=== PATIENT | female | born 1945 | race Hispanic/Latino ===

== ENCOUNTER 2022-06-25 11:05 | Emergency (ER) | payer MEDICARE, OTHER ==
[~2022-06-25] VITALS: Ht 152.4 cm; Wt 74.8 kg
[2022-06-25 11:50] LABS: BASOPHILS % (AUTO) 0.2 % (0.0-5.0); EOSINOPHILS % (AUTO) 0.9 % (0.0-8.0); HEMATOCRIT 40.4 % (36-48); LYMPHOCYTES % (AUTO) 18.2 % (21.0-51.0); MEAN CORPUSCULAR HEMOGLOBIN 30.4 pg (27.0-33.0); MEAN CORPUSCULAR HGB CONC 33.4 g/dL (32.0-36.0); MONOCYTES % (AUTO) 9.2 % (3.0-13.0); NEUTROPHILS % (AUTO) 71.2 % (40.0-77.0); PLATELET COUNT (AUTO) 232 K/uL (130-400); RED BLOOD CELL COUNT(AUTO) 4.44 MIL/uL (4.00-5.50); RED CELL DISTRIBUTION WIDTH 12.9 % (11.0-15.5); WHITE BLOOD COUNT (AUTO) 5.8 K/uL (4.8-10.8)
[2022-06-25 12:01] LABS: INR 0.93 (0.85-1.15); PROTHROMBIN TIME 10.1 SEC (9.6-11.6)
[2022-06-25 12:03] LABS: CREATININE 0.8 mg/dL (0.5-1.5); POTASSIUM 4.1 mmol/L (3.5-5.1)
[2022-06-25 12:08] LABS: ALBUMIN 4.1 g/dL (3.5-5.0); TOTAL PROTEIN, SERUM 8.4 g/dL (6.0-8.3)
[2022-06-25] MEDS ORDERED: ACET-66 PO (13:55)
[2022-06-25 14:30] VITALS: BP 140/72
== END 2022-06-25 14:39 | disposition home or self-care (01) ==
LOC: EDH 11:05
DX: S05.12XA Contusion of eyeball and orbital tissues, left eye, initial encounter (principal); S05.11XA Contusion of eyeball and orbital tissues, right eye, initial encounter; W18.30XA Fall on same level, unspecified, initial encounter; Y93.89 Activity, other specified; Y92.89 Other specified places as the place of occurrence of the external cause; Y99.8 Other external cause status
CPT/HCPCS: 36415; 70450; 70486; 72125; 80053; 85025; 85610; 93005

== ENCOUNTER 2024-05-18 06:58 | Observation (INO) | payer OTHER, MEDICARE ==
[~2024-05-18] VITALS: Ht 162.6 cm; Wt 65.5 kg
[~2024-05-18 06:58] MED LIST: ACET-66 PO
--- NOTE | 2024-05-18 07:30 | EKG ---
[facility] Test Date: 2024-05-18 Test Time: 07:04:47 Pat Name: LISBETH CROW Department: ED Room: 306 Gender: F Proposition Player: [id number] : 1945 Requested By: JOSÉ ANTONIO WALLS Order Number: [id number] Reading MD: González Davey Measurements Intervals [place] Rate: 81 P: 0 WV: 137 QRS: 29 QRSD: 87 T: 24 QT: 388 QTc: 440 Interpretive Statements Sinus rhythm Multiple ventricular premature complexes Compared to ECG 06/25/2022 11:29:17 Ventricular premature complex(es) now present Electronically Signed On 05-19-2024 20:01:03 [employer] by González Davey Please click the below link to view image of tracing.
[2024-05-18 08:37] LABS: BASOPHILS # (AUTO) 0.02 K/uL (0.00-0.20); BASOPHILS % (AUTO) 0.2 % (0.0-5.0); HEMATOCRIT 36.3 % (36-48); IMMATURE GRANULOCYTE ABSOLUTE 0.04 K/uL (0-1); LYMPHOCYTES # (AUTO) 0.7 K/uL (1.0-4.8); LYMPHOCYTES % (AUTO) 7.6 % (21.0-51.0); MEAN CORPUSCULAR HGB CONC 35.3 g/dL (32.0-36.0); MEAN CORPUSCULAR VOLUME 87.9 fL (79-99); MONOCYTES # (AUTO) 0.7 K/uL (0.1-1.0); MONOCYTES % (AUTO) 7.5 % (3.0-13.0); NEUTROPHILS # (AUTO) 8.2 K/uL (1.8-7.7); NEUTROPHILS % (AUTO) 84.3 % (40.0-77.0); PLATELET COUNT (AUTO) 235 K/uL (130-400); RED BLOOD CELL COUNT(AUTO) 4.13 MIL/uL (4.00-5.50); RED CELL DISTRIBUTION WIDTH 12.7 % (11.0-15.5); WHITE BLOOD COUNT (AUTO) 9.7 K/uL (4.8-10.8)
--- NOTE | 2024-05-18 08:39 | HMCIMG ---
CHEST 1VW REASON: CHEST PAIN COMPARISON: None. FINDINGS: There is a prominent right pulmonary hilum. This probably represents pulmonary vessels but a mass could cause this appearance as well. CT chest is recommended for further evaluation in the absence of prior chest x-rays for comparison. Lungs are otherwise clear. Heart size is normal. There is no vascular congestion or pleural effusion. IMPRESSION: 1. Prominent right hilum, probably pulmonary arteries but could be a hilar mass, post contrast CT chest recommended for further evaluation.
[2024-05-18 08:45] LABS: CREATININE 0.8 mg/dL (0.5-1.0); POTASSIUM 3.5 mmol/L (3.5-5.1)
[2024-05-18] MEDS: ondanSETRON 4MG INJ IVP ONE (08:46)
[2024-05-18] MEDS: ASPIRIN 325MG TAB PO ONE (08:47)
[2024-05-18] MEDS: morPHINE 4 MG SYG IVP ONE (08:47)
[2024-05-18 08:51] LABS: APPEARANCE,URINE CLEAR (CLEAR); BILIRUBIN,URINE NEGATIVE (NEGATIVE); COLOR,URINE LIGHT-YELLOW (YELLOW); GLUCOSE, URINE (UA) NEGATIVE (NEGATIVE); KETONES,URINE NEGATIVE (NEGATIVE); LEUKOCYTE ESTERASE ,URINE 25 Leu/uL (NEGATIVE); NITRATE,URINE NEGATIVE (NEGATIVE); OCCULT BLOOD,URINE NEGATIVE (NEGATIVE); PROTEIN,URINE NEGATIVE (NEGATIVE); UROBILINOGEN,URINE 0.2 mg/dL (0.2-1.0)
[2024-05-18 08:53] LABS: ADD UA MICROSCOPIC YES
[2024-05-18 09:00] LABS: RBC,URINE 0-1 /HPF (0-1); SQUAMOUS EPITHELIAL CELL,UR RARE /HPF (0-2); WBC,URINE 0-1 /HPF (0-1)
--- NOTE | 2024-05-18 09:21 | HMCIMG ---
Comment Exam: NONCONTRAST CT BRAIN REASON: acute HEADACHE. COMPARISON: 06/25/2022 TECHNIQUE: Images are obtained from vertex to the skull base. The exam was performed without IV contrast. FINDINGS: There are generous ventricles and sulci. There is decreased attenuation in the deep central white matter. These findings are consistent with atrophy. There are no acute appearing focal parenchymal lesions. There is no evidence of mass, intracranial hemorrhage or acute stroke. Posterior fossa and brainstem structures appear unremarkable. There are no abnormal fluid collections. Extra cranial soft tissues appear unremarkable as well. IMPRESSION: 1. Atrophy, no acute finding. CT was performed with one or more following dose reduction techniques: automated exposure control, adjustment of the mA and kv according to patient's size, or use of a iterative reconstruction technique.
--- NOTE | 2024-05-18 09:25 | ERN ---
ED Note History of Present Illness Stated Complaint: C/O HEADACHE WITH CP ONSET 1800 YESTERDAY Chief Complaint: Chest Pain Time Seen by MD: 07:29 Dictation: 78-year-old female presents to the ED for evaluation of chest pain onset last night patient is complaining of a headache, but denies any shortness of breath, vomiting or any other associated symptoms at this time. Allergies: Coded Allergies: No Known Allergies (Unverified Allergy, Unknown, 06/25/22) Home Meds Active Scripts Acetaminophen (Tylenol) 500 Mg Tab, 500 MG PO Q6HPRN PRN for PAIN LEVEL 1 TO 5 for 5 Days, #30 TAB Prov:HERLINDA PAGE MD 06/25/22 Past Medical History Past Medical History: Hypertension Surgical History: Other Social History: Negative Review of System Dictation Constitutional: Negative for fever,chills, and weight loss Eyes: Negative for injury, pain,redness, and discharge ENT: Negative for injury,pain or swelling Cardiovascular: Positive for chest pain negative for palpitations, and edema Respiratory: Negative for shortness of breath, cough, and wheezing, Abdomen/GI: Negative for abdominal pain, nausea, vomiting, diarrhea, and constipation Back: Negative for injury and pain : Negative for injury, bleeding and discharge MS/Extremity: Negative for injury and deformity Skin: Negative for rash, and discoloration Neuro: Positive for headache negative for weakness, numbness, tingling, and seizure Psych: Negative for suicide ideation, homicidal ideation, and hallucinations Initial Vital Sign VS Vital Signs Date Time Temp Pulse Resp B/P (MAP) Pulse Ox O2 Delivery O2 Flow Rate FiO2 05/18/24 07:02 100.0 83 20 139/84 98 Room Air 05/18/24 08:45 0 21 Physical Exam Dictation General: awake, alert, patient appears uncomfortable Head/Face: Normocephalic, atraumatic Eyes: PERRL, EOMI, vision at baseline ENT: oral cavity clear, TMs clear, no signs of infection Neck: Trachea midline, supple, no nuchal rigidity Cardiovascular: RRR, normal S1/S2, No MRGs, no JVD Respiratory: CTAB, no respiratory distress, No rales or wheezes Abdomen: Soft, non-tender, non-distended, normal bowel sounds, no guarding or rebound. Skin: Warm, dry, normal turgor, no rash MS/Extremity: Pulses equal, no cyanosis, neurovascular intact, FROM Neuro: COAx4, GCS 15, strength 5/5, CN 2-12 intact, normal cerebellar exam, normal gait, Psych: Normal behavior, mood, and affect normal Results (Laboratory/Radiology) Laboratory/Radiology Laboratory Tests Test 05/18/24 08:15 05/18/24 08:19 05/18/24 08:53 05/18/24 10:25 Urine Color LIGHT-YELLOW (YELLOW) Urine Appearance CLEAR (CLEAR) Urine pH 7.0 (5.0-8.0) Urine Specific [place] 1.007 (1.001-1.031) Urine Protein NEGATIVE mg/dL (NEGATIVE) Urine Glucose (UA) NEGATIVE mg/dL (NEGATIVE) Urine Ketones NEGATIVE mg/dL (NEGATIVE) Urine Occult Blood NEGATIVE (NEGATIVE) Urine Nitrate NEGATIVE (NEGATIVE) Urine Bilirubin NEGATIVE mg/dL (NEGATIVE) Urine Urobilinogen 0.2 mg/dL (0.2-1.0) Urine Leukocyte Esterase 25 Michelle/uL (NEGATIVE) H Urine RBC 0-1 /HPF (0-1) Urine WBC 0-1 /HPF (0-1) Urine Squamous Epithelial Cells RARE /HPF (0-2) Urine Bacteria None /HPF (None Seen) White Blood Count 9.7 K/uL (4.8-10.8) Red Blood Count 4.13 MIL/uL (4.00-5.50) Hemoglobin 12.8 g/dL (12.0-16.0) Hematocrit 36.3 % (36-48) Mean Corpuscular Volume 87.9 fL (79-99) Mean Corpuscular Hemoglobin 31.0 pg (27.0-33.0) Mean Corpuscular Hemoglobin Concent 35.3 g/dL (32.0-36.0) Red Cell Distribution Width 12.7 % (11.0-15.5) Platelet Count 235 K/uL (130-400) Mean Platelet Volume 10.5 fL (7.5-10.5) Immature Granulocyte % (Auto) 0.4 % (0-1) Neutrophils (%) (Auto) 84.3 % (40.0-77.0) H Lymphocytes (%) (Auto) 7.6 % (21.0-51.0) L Monocytes (%) (Auto) 7.5 % (3.0-13.0) Eosinophils (%) (Auto) 0.0 % (0.0-8.0) Basophils (%) (Auto) 0.2 % (0.0-5.0) Neutrophils # (Auto) 8.2 K/uL (1.8-7.7) H Lymphocytes # (Auto) 0.7 K/uL (1.0-4.8) L Monocytes # (Auto) 0.7 K/uL (0.1-1.0) Eosinophils # (Auto) 0.00 K/uL (0.00-0.70) Basophils # (Auto) 0.02 K/uL (0.00-0.20) Absolute Immature Granulocyte (auto 0.04 K/uL (0-1) Nucleated Red Blood Cells 0.0 % (0.0-0.19) White Cell Morphology Comment See comments Sodium Level 135 mmol/L (136-145) L Potassium Level 3.5 mmol/L (3.5-5.1) Chloride Level 100 mmol/L (101-111) L Carbon Dioxide Level 28 mmol/L (21-32) Blood Urea Nitrogen 11 mg/dL (7-18) Creatinine 0.8 mg/dL (0.5-1.0) Glomerular Filtration Rate Calc 76 mL/min (>90) Random Glucose 106 mg/dL (70-105) H Total Calcium 9.3 mg/dL (8.5-10.1) Total Creatine Kinase 37 U/L (21-232) B-Type Natriuretic Peptide 126 pg/mL (0-100) H Troponin I < 0.05 ng/mL (0.00-0.05) Troponin I High Sensitivity 11 ng/L (4-50) Labs Reviewed?: Yes EKG Comment: EKG 05/18/2024 time 7:04 a.m. ventricular rate 81, [place] 137, QRS D 87, QT 388. Sinus rhythm, multiple ventricular premature complexes. No STEMI X-RAY Comment: REASON: CHEST PAIN ORDERING PHYSICIAN: JOSÉ ANTONIO WALLS MD PROCEDURE: CXR1VW - CHEST 1VW CHEST 1VW REASON: CHEST PAIN COMPARISON: None. FINDINGS: There is a prominent right pulmonary hilum. This probably represents pulmonary vessels but a mass could cause this appearance as well. CT chest is recommended for further evaluation in the absence of prior chest x-rays for comparison. Lungs are otherwise clear. Heart size is normal. There is no vascular congestion or pleural effusion. IMPRESSION: 1. Prominent right hilum, probably pulmonary arteries but could be a hilar mass, post contrast CT chest recommended for further evaluation. DICTATED BY: NEAL ROSS MD DATE: 05/18/[address] Scan Comment: REASON: mass ORDERING PHYSICIAN: JOSÉ ANTONIO WALLS MD PROCEDURE: CHEST W - CT CHEST W/CONTRAST CT CHEST W/CONTRAST REASON: mass COMPARISON: Chest x-ray 05/18/2024 20 prominent right hilum. TECHNIQUE: Multiple sequential axial images of the chest were obtained from the thoracic inlet through the upper pole of the kidneys following intravenous contrast administration. Contrast volume was 75 cc Omnipaque 350. FINDINGS: Lungs are clear. There are no focal masses or infiltrates. There are no pleural effusions. There is mild ectasia of the aorta without evidence of aneurysm or dissection. There is mild prominence of central pulmonary arteries. There is no CT evidence of right hilar or other focal mass lesion. There is no hilar or mediastinal lymphadenopathy. Chest wall structures appear normal. Visualized upper abdominal structures are unremarkable. IMPRESSION: 1. Negative postcontrast CT chest. 2. The prominent right hilum seen on the chest x-ray was performed by mildly prominent but otherwise normal central pulmonary arteries. CT was performed with one or more following dose reduction techniques: automated exposure control, adjustment of the mA and kv according to patient's size, or use of a iterative reconstruction technique. DICTATED BY: KENNETH ROSS REASON: acute HEADACHE ORDERING PHYSICIAN: JOSÉ ANTONIO WALLS MD PROCEDURE: HEAD WO - CT HEAD/BRAIN W/O CONTRAST Comment Exam: NONCONTRAST CT BRAIN REASON: acute HEADACHE. COMPARISON: 06/25/2022 TECHNIQUE: Images are obtained from vertex to the skull base. The exam was performed without IV contrast. FINDINGS: There are generous ventricles and sulci. There is decreased attenuation in the deep central white matter. These findings are consistent with atrophy. There are no acute appearing focal parenchymal lesions. There is no evidence of mass, intracranial hemorrhage or acute stroke. Posterior fossa and brainstem structures appear unremarkable. There are no abnormal fluid collections. Extra cranial soft tissues appear unremarkable as well. IMPRESSION: 1. Atrophy, no acute finding. CT was performed with one or more following dose reduction techniques: automated exposure control, adjustment of the mA and kv according to patient's size, or use of a iterative reconstruction technique. DICTATED BY: NEAL ROSS MD DATE: 05/18/24916 ED Course ED Course Orders Procedure Category Date Status Time Vital Signs Per CPOE 05/18/24 Transmitted Routine 07:07 B-Type Natriuretic LAB 05/18/24 Complete Peptide 07:07 Chest 1vw RAD 05/18/24 Resulted 07:07 12 Lead Ekg Tracing- EKG 05/18/24 Complete Technical 07:07 Oxygen By Nc/Pulse Ox CPOE 05/18/24 Transmitted 07:07 Maintain Iv CPOE 05/18/24 Transmitted 07:07 Iv Insertion CPOE 05/18/24 Transmitted 07:07 Cardiac Monitoring CPOE 05/18/24 Transmitted 07:07 Pulse Oximetry With CPOE 05/18/24 Transmitted Vs And Prn 07:07 Cbc With Differential LAB 05/18/24 Complete 07:07 Activity: Br W/Brp CPOE 05/18/24 Transmitted With Assist 07:07 Creatine Kinase, Total LAB 05/18/24 Complete 07:07 Urinalysis Profile LAB 05/18/24 Complete 07:07 Troponin Poc Order LAB 05/18/24 Complete Only 07:07 Bedside Troponin-I LAB.ER 05/18/24 In Process (Poc) 07:07 Basic Metabolic Panel LAB 05/18/24 Complete 07:07 Morphine 4mg Syg PHA 05/18/24 Complete (Morphine 4mg Syg) 08:00 Ondansetron 4mg Inj PHA 05/18/24 Complete (Zofran 4mg Inj) 08:00 Aspirin 325mg Tab PHA 05/18/24 Complete (Aspirin 325mg Tab) 08:00 Ct Head/Brain W/O CT 05/18/24 Resulted Contrast 08:00 Troponin I High LAB 05/18/24 Complete Sensitivity 10:11 Ct Chest W/Contrast CT 05/18/24 Resulted 11:07 Iohexol (Omnipaque) PHA 05/18/24 Complete 11:20 Admit Orders ADM 05/18/24 Transmitted 12:03 Current Medications Medications (Trade) Dose Ordered Sig/Madhav Route PRN Reason Start Time Stop Time Status Last Admin Dose Admin Aspirin (Aspirin 325mg Tab) 325 mg ONCE ONCE PO 05/18/24 08:00 05/18/24 08:02 DC 05/18/24 08:47 Iohexol (Omnipaque) 75 ml STK-MED ONCE IV 05/18/24 11:20 05/18/24 11:20 DC Morphine Sulfate (morPHINE 4MG SYG) 4 mg ONCE ONCE IVP 05/18/24 08:00 05/18/24 08:02 DC 05/18/24 08:47 Ondansetron HCl (zoFRAN 4MG INJ) 4 mg ONCE ONCE IVP 05/18/24 08:00 05/18/24 08:02 DC 05/18/24 08:46 Vital Signs Date Time Temp Pulse Resp B/P (MAP) Pulse Ox O2 Delivery O2 Flow Rate FiO2 05/18/24 11:10 64 15 113/62 95 Room Air* 0 21 05/18/24 10:45 67 15 118/63 95 Room Air* 0 21 05/18/24 09:45 65 17 139/71 95 Room Air* 0 21 05/18/24 08:45 98.2 82 13 143/71 100 Room Air* 0 21 05/18/24 07:02 100.0 83 20 139/84 98 Room Air Medical Decision Making MDM MDM: Differential diagnosis: Chest pain, angina 1203-hospitalist consult, accepts patient for admission Rationale: Tests considered and ordered secondary to shared decision making include: labs, ECG and radiology Risk of complication and/or morbidity or mortality of patient management: None Medications-Per medication reconciliation Need for hospitalization: Patient does meet criteria for hospitalization. Need for emergency major/minor surgery: No There are no social concerns with this patient. I independently interpreted the test that were performed, results were reviewed by me and considered findings on radiology if ordered. Medical management and examination interpretation discussions were had by me with other qualified healthcare professionals as indicated for the patient's care.. DX & DISP Disposition: Inpatient Decision to Admit Date: May 18, 2024 Decision to Admit Time: 12:02 Departure Impression: Primary Impression: Chest pain Condition: Stable Referrals: SELF,REFERRAL (PCP) JOSÉ ANTONIO WALLS MD May 18, 2024 09:25
[2024-05-18 09:26] LABS: B-TYPE NATRIURETIC PEPTIDE 126 pg/mL (0-100)
[2024-05-18] MEDS ORDERED: IOHEXOL-350 75 ML VIAL IV ONE (11:20)
--- NOTE | 2024-05-18 11:58 | HMCIMG ---
CT CHEST W/CONTRAST REASON: mass COMPARISON: Chest x-ray 05/18/2024 20 prominent right hilum. TECHNIQUE: Multiple sequential axial images of the chest were obtained from the thoracic inlet through the upper pole of the kidneys following intravenous contrast administration. Contrast volume was 75 cc Omnipaque 350. FINDINGS: Lungs are clear. There are no focal masses or infiltrates. There are no pleural effusions. There is mild ectasia of the aorta without evidence of aneurysm or dissection. There is mild prominence of central pulmonary arteries. There is no CT evidence of right hilar or other focal mass lesion. There is no hilar or mediastinal lymphadenopathy. Chest wall structures appear normal. Visualized upper abdominal structures are unremarkable. IMPRESSION: 1. Negative postcontrast CT chest. 2. The prominent right hilum seen on the chest x-ray was performed by mildly prominent but otherwise normal central pulmonary arteries. CT was performed with one or more following dose reduction techniques: automated exposure control, adjustment of the mA and kv according to patient's size, or use of a iterative reconstruction technique.
[2024-05-18] MEDS ORDERED: MAGNESIUM 2GM PREMIX 50ML 50 ML IV PRN (13:30)
[2024-05-18] MEDS ORDERED: morPHINE 2 MG SYG IVP PRN (13:30)
[2024-05-18] MEDS ORDERED: PoTASSium chloRIDE 20MEQ/100ML 100 ML IV PRN (13:30)
[2024-05-18] MEDS ORDERED: PoTASSium chl 10% ELIXIR 20MEQ 20 MEQ/15 ML UDCUP PO PRN (13:30)
--- NOTE | 2024-05-18 13:38 | HP ---
[facility] HISTORY AND PHYSICAL Date of Service: May 18, 2024 Time of Service: 13:32 HISTORY OF PRESENT ILLNESS: [78-year-old female with past medical history of hypertension, diabetes mellitus, two strokes who presented to the emergency department with complaints of chest pain. Started around 6:00 p.m. last night. According to the patient chest pain is more pressure-like pain that is located on the left chest. Associated with headaches. No shortness a breath no vomiting. In the ED, her initial vital signs showed temperature 100.0, pulse 83, respiratory rate 20, blood pressure 139/84, O2 sat 98% on room air. Labs reviewed, BNP 126, chest x-ray showed prominent right hilum probably pulmonary artery but could be hilar mass, postcontrast chest CT recommended for further evaluation. CT chest did show negative postcontrast CT chest, the prominent right hilum seen in the chest x-ray was performed by mildly prominent but otherwise normal central pulmonary arteries. This patient had a 2D echo which read LVEF of 55-60% stage I diastolic dysfunction, right atrium is dilated, mild concentric left ventricular hypertrophy. 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 REVIEW OF SYSTEMS CONSTITUTIONAL: Denies fevers, chills, or night sweats. No unintentional weight loss reported. NEUROLOGICAL: Denies headache, amaurosis fugax, motor weakness, sensory deficit, vertigo/spinning sensation, gait abnormalities, or tremors. ENT: No hearing loss, otalgia, otorrhea, rhinitis, rhinorrhea, hoarseness, or sore throat. CARDIOVASCULAR: Denies any exertional angina, dyspnea on exertion, orthopnea, paroxysmal nocturnal dyspnea, palpitations, life-threatening arrhythmias, claudi cation. PULMONARY: Denies any shortness of breath, cough, phlegm/sputum, hemoptysis, pleuritic chest pain. SLEEP: Denies morning headaches, daytime somnolence or napping. Denies difficulty falling asleep, staying asleep, waking from sleep. Denies knowledge of snoring. GASTROINTESTINAL: Denies any type of dysphagia to either liquids or solids. Denies nausea, vomiting, pyrosis, early satiety, abdominal pain, diarrhea, constipation, or changes in stool consistency or caliber. Denies coffee-ground emesis, hematemesis, hematochezia, or melanotic stools. GENITOURINARY: Denies frequency, urgency, nocturia, hematuria or incontinence (Storage/Irritative symptoms.) Low urinary stream, straining to void, urinary intermittency or hesitancy, splitting of the voiding stream, terminal dribbling. ENDOCRINOLOGIC: Denies polyuria, polydipsia, polyphagia or heat/cold intolerances. HEMATOLOGIC: Denies thrombophilia/previous clots, or coagulopathy/bleeding disorders. ONCOLOGIC: Denies personal history of malignancy. DERMATOLOGIC: Denies rashes or pruritus. PSYCHIATRIC: Denies any suicidal or homicidal ideation. Denies hallucinations. PAST MEDICAL HISTORY: [Two strokes, hypertension, ] PAST SURGICAL HISTORY: [Tubal ligation ] PAST SOCIAL HISTORY: [ Denies tobacco, alcohol illicit drug use ] FAMILY HISTORY: [ Hypertension ] Coded Allergies: No Known Allergies (Unverified Allergy, Unknown, 06/25/22) PHYSICAL EXAM GENERAL APPEARANCE: The patient is awake, alert, and oriented, in no acute cardiopulmonary distress. NEUROLOGICAL: Cranial nerves II-XII grossly intact. Motor is 5/5 in bilateral upper and lower extremities proximal to distal. No sensory deficits. HEENT: Face is symmetric. Pupils are equal and reactive. Extraocular movements are intact. NECK: Supple. No JVD. No thyromegaly. No submental, submandibular, pre- /postauricular, occipital or supraclavicular lymphadenopathy. CHEST: Normal chest expansion. No Telemetry. LUNGS: Absence of any rales, rhonchi or any wheezing. CARDIOVASCULAR: Regular. S1 and S2 normal. No appreciable rubs, murmurs or gallops. ABDOMEN: Soft, nontender, and nondistended. There is no rebound, voluntary guarding, or rigidity. : Deferred. No Parisi. EXTREMITIES: Non-edematous and not cyanotic. No clubbing. Good capillary refill. SKIN: No skin breakdown. Vital Sign (Last 24 Hours) 05/18/24 05/18/24 08:45 11:10 Temp 98.2 Pulse 64 Resp 15 B/P (MAP) 113/62 Pulse Ox 95 O2 Delivery Room Air* O2 Flow Rate 0 FiO2 21 LABS: Laboratory: Test 05/18/24 10:25 05/18/24 08:53 05/18/24 08:19 05/18/24 08:15 Range/Units Troponin I High Sensitivity 11 4-50 ng/L Troponin I < 0.05 0.00-0.05 ng/mL White Blood Count 9.7 4.8-10.8 K/uL Red Blood Count 4.13 4.00-5.50 MIL/uL Hemoglobin 12.8 12.0-16.0 g/dL Hematocrit 36.3 36-48 % Mean Corpuscular Volume 87.9 79-99 fL Mean Corpuscular Hemoglobin 31.0 27.0-33.0 pg Mean Corpuscular Hemoglobin Concent 35.3 32.0-36.0 g/dL Red Cell Distribution Width 12.7 11.0-15.5 % Platelet Count 235 130-400 K/uL Mean Platelet Volume 10.5 7.5-10.5 fL Immature Granulocyte % (Auto) 0.4 0-1 % Neutrophils (%) (Auto) 84.3 H 40.0-77.0 % Lymphocytes (%) (Auto) 7.6 L 21.0-51.0 % Monocytes (%) (Auto) 7.5 3.0-13.0 % Eosinophils (%) (Auto) 0.0 0.0-8.0 % Basophils (%) (Auto) 0.2 0.0-5.0 % Neutrophils # (Auto) 8.2 H 1.8-7.7 K/uL Lymphocytes # (Auto) 0.7 L 1.0-4.8 K/uL Monocytes # (Auto) 0.7 0.1-1.0 K/uL Eosinophils # (Auto) 0.00 0.00-0.70 K/uL Basophils # (Auto) 0.02 0.00-0.20 K/uL Absolute Immature Granulocyte (auto 0.04 0-1 K/uL Nucleated Red Blood Cells 0.0 0.0-0.19 % White Cell Morphology Comment See comments Sodium Level 135 L 136-145 mmol/L Potassium Level 3.5 3.5-5.1 mmol/L Chloride Level 100 L 101-111 mmol/L Carbon Dioxide Level 28 21-32 mmol/L Blood Urea Nitrogen 11 7-18 mg/dL Creatinine 0.8 0.5-1.0 mg/dL Glomerular Filtration Rate Calc 76 >90 mL/min Random Glucose 106 H 70-105 mg/dL Total Calcium 9.3 8.5-10.1 mg/dL Total Creatine Kinase 37 21-232 U/L B-Type Natriuretic Peptide 126 H 0-100 pg/mL Urine Color LIGHT-YELLOW YELLOW Urine Appearance CLEAR CLEAR Urine pH 7.0 5.0-8.0 Urine Specific [place] 1.007 1.001-1.031 Urine Protein NEGATIVE NEGATIVE mg/dL Urine Glucose (UA) NEGATIVE NEGATIVE mg/dL Urine Ketones NEGATIVE NEGATIVE mg/dL Urine Occult Blood NEGATIVE NEGATIVE Urine Nitrate NEGATIVE NEGATIVE Urine Bilirubin NEGATIVE NEGATIVE mg/dL Urine Urobilinogen 0.2 0.2-1.0 mg/dL Urine Leukocyte Esterase 25 H NEGATIVE Michelle/uL Urine RBC 0-1 0-1 /HPF Urine WBC 0-1 0-1 /HPF Urine Squamous Epithelial Cells RARE 0-2 /HPF Urine Bacteria None None Seen /HPF Current Medications Medications (Trade) Dose Ordered Sig/Madhav Route PRN Reason Start Time Stop Time Status Last Admin Dose Admin Enoxaparin Sodium (Lovenox) 30 mg DAILY SQ 05/19/24 09:00 06/18/24 08:59 UNV Magnesium Sulfate 50 ml @ 0 mls/hr PROTOCOL PRN IV MAGNESIUM PROTOCOL 05/18/24 13:30 06/17/24 13:29 UNV Metoprolol Tartrate (loprESSOR) 12.5 mg BID PO 05/18/24 21:00 06/17/24 20:59 UNV Morphine Sulfate (morPHINE 2MG SYG) 2 mg Q4H PRN IVP SEVERE PAIN (7-10) 05/18/24 13:30 05/25/24 13:29 UNV Potassium Chloride 100 ml @ 100 mls/hr AD PRN IV POTASSIUM PROTOCOL 05/18/24 13:30 06/17/24 13:29 UNV Potassium Chloride (K-Dur/Klor-Con 20meq) 20 meq AD PRN PO POTASSIUM PROTOCOL 05/18/24 13:30 06/17/24 13:29 UNV Potassium Chloride (KCl 10% Elixir 20meq/15ml) 20 meq AD PRN PO POTASSIUM PROTOCOL 05/18/24 13:30 06/17/24 13:29 UNV DIAGNOSTICS / RADIOLOGY: [ ] ASSESSMENT: [Chest pain r/o ACS, POA Prominent right hilum on chest x-ray by mildly prominent but otherwise normal central pulmonary arteries by CT chest, POA Hyponatremia, POA Hyperglycemia, POA Elevated BNP, POA Urinary tract infection, POA] PLAN: [Place in observation on telemetry floor to rule out acute coronary syndrome. Check serial cardiac enzymes every 8 hours 3 sets to rule out myocardial injury Start on antiplatelet agents, beta kierra, nitrates, low molecular weight heparin, morphine, oxygen. Check 2-D echocardiogram to evaluate for regional wall motion abnormalities, and trend cardiac enzymes Cardiology consult in a.m. We will start IV antibiotics for urinary tract infection with Rocephin1 g Q24 hours Add when necessary meds for nausea, vomiting, pain, constipation, Continue Lovenox and Protonix for DVT and GI prophylaxis. Rehab: PT/OT/ST GI: PPI DVT: SCD's Code Status: Full Resuscitation Disposition: TBD Prognosis: Guarded NEURO: Minimize central acting medications as possible. Fall Precautions. Well lighted room through the day and minimize interruptions through the night to prevent acute delirium. PULMONARY: Supplemental 02 as needed BiPAP as necessary, for respiratory distress Titrate Fio2 to keep Spo2 > or = 90% DuoNebs and CPT as needed IS hourly while awake for pulmonary hygiene Out of bed to chair as tolerated VAP Bundle Maintain aspiration precautions at all times CARDIOVASCULAR: Follow hemodynamics. Vital signs per facility protocol GI & NUTRITION: Continue nutritional support Aspirations precautions Prokinetic agents and laxatives as needed KIDNEYS & ELECTROLYTES: Strict monitoring of intake and output Daily weights Avoid nephrotoxic agents Monitor electrolytes and replace as needed Goal urine output of 30mL/hr or 0.5mL/kg/hr Medications to be dosed according to renal function. Avoid contrast if possible ENDOCRINE: Maintain blood glucose between 100-180 at all times. Insulin sliding scale for blood glucose management Hypoglycemia and hyperglycemia protocol in place INFECTIOUS DISEASE: Trend temperature, WBC and procalcitonin level Follow cultures, deescalate antibiotics as soon as possible. Panculture if new onset fever HEMATOLOGY & COAGULATION: Monitor H&H. Keep Hgb > 7 Transfuse 1 unit of PRBC for Hgb < 7 Transfuse 1 pack of platelets of platelets < 20, 000 Watch for any signs and symptoms of bleeding SKIN: Pressure ulcer prevention per facility protocol Specialty mattress as needed ADVANCED CARE PLANNING 1. Which of the following were discussed? Hospice Care - Yes / No Therapeutic options - Yes / No Advance Directives - Yes / No Other discussions - 2. Discussed with who? Patient 3. Voluntary nature of this service was explained to the patient? Yes / No 4. Amount of time spent - __20 mins 5. Reviewed by Physician? (if this service was performed by NPP) Yes / No ] ATTESTATION BY PHYSICIAN I have seen and examined the patient. I reviewed the documentation, medical decision making, and treatment plan as noted by the mid-level provider above. I agree with the findings and plan of care. WYATT VIGIL MD, JANICE B [facility] May 18, 2024 13:38
[2024-05-18] MEDS ORDERED: TELM1TAB42 PO (13:40)
[2024-05-18] MEDS ORDERED: AMLO-258 PO (13:40)
[2024-05-18] MEDS ORDERED: GABA300C PO (13:40)
--- NOTE | 2024-05-18 13:40 | NUR ---
MEDICATIONS RECONCILED AND RETURNED TO PATIENT
[2024-05-18] MEDS: cefTRIAXone 1G VIAL IVPB SCH (14:32)
--- NOTE | 2024-05-18 20:08 | EKG ---
Test Date: 2024-05-18 Test Time: 15:07:56 Pat Name: LISBETH CROW Department: [facility] Room: 306 Gender: F Donor Technician: [id number] : 1945 Requested By: RENETTA CABRERA Order Number: [id number] Reading MD: González Davey Measurements Intervals [place] Rate: 68 P: -2 LA: 142 QRS: 15 QRSD: 85 T: 30 QT: 398 QTc: 424 Interpretive Statements Sinus rhythm Compared to ECG 05/18/2024 07:04:47 Ventricular premature complex(es) no longer present Electronically Signed On 05-19-2024 20:01:49 ALLIED HEALTH PROFESSIONAL by González Davey Please click the below link to view image of tracing.
[2024-05-18] MEDS: metoPROLOL tartRATE 25 MG TAB PO SCH (21:06)
[2024-05-18 21:17] VITALS: BP 164/99; PULSE 75; RESP 20; TEMP 98.2
[2024-05-18 21:20] VITALS: O2SAT 98
--- NOTE | 2024-05-18 21:23 | NUR ---
PATIENT REPORT GIVEN TO ELLIOT SWIFT
--- NOTE | 2024-05-18 23:37 | HMCSR ---
APPROVED REPORT EXAM: Two-dimensional and M-mode echocardiogram with Doppler and color Doppler. INDICATION ICD: Chest Pain 2D Dimensions RVDd4.1 cmLVEF(%)62.3 (>50%)LVED Vol(simp.)86.9 mL IVSd1.1 (0.7-1.1cm)FS(%)33 %LVES Vol(simp.)27.1 mL LVDd4.2 (3.8-5.6cm)LA (2D)5.3 (1.6-4.0cm)LVEF(%, simp.)69 % PWd0.9 (0.7-1.1cm)Ao Root(2D)3.3 (2.0-3.7cm)LA ESV INDEX (4CH)40.50 mL/m2 IVSs1.4 cmLVOT diam2.0 (1.8-2.4cm)LA ESV INDEX (2CH)38.30 mL/m2 LVDs2.8 (2.5-4.0cm)LA ESV INDEX (BP)41.80 mL/m2 PWs1.1 cm Deformation Strain Apical 428.0 % Apical 224.0 % Apical 327.0 % Global Qrzwiz83.0 % Aortic Valve AoV VTI0.4 mAo Mean GR7.0 mmHgLVOT VTI0.27 m SAIRA (VMAX)2.2 cm2Al P1/2T884 msAVA (VTI) 2.2 cm2 Mitral Valve MV E Vmax75.7 cm/sDECEL Wulp646 ms MV A Ldui867.6 cm/sP 1/2 T80 ms E/A ratio0.7MVA (PHT)2.7 cm2 TDI E/E' Qolzpy02.2E/E' Vsrpfkk87.8 Medial E' Peak V4.40 cm/sLateral E' Peak V5.90 cm/s Pulmonary Valve PV Vmax1.3 m/s PV Peak GR6.5 mmHg Tricuspid Valve TR Vmax2.8 m/sRAP (EST) 3 vhJoAKYU51.7 mmHg TR Peak GR30.7 mmHg Left Ventricle The left ventricle is normal size. No regional wall motion abnormalities noted. Mild concentric left ventricular hypertrophy. Left ventricular systolic function is normal estimated LVEF is [address]%. [address] age I diastolic dysfunction. Right Ventricle The right ventricle is normal size. The right ventricular systolic function is normal. Atria The left atrium is mildly dilated, 41 mL/m. The right atrium is dilated. Aortic Valve Aortic valve is probably trileaflet. The leaflets are thickened and calcified. Mild aortic regurgitat ion. There is aortic sclerosis without stenosis. Peak velocity 1.8 m/s, mean gradient 7 mmHg. Mitral Valve Mild mitral annular calcification is noted. The leaflets are mildly thickened and calcified. Trace mi tral regurgitation. There is no mitral valve stenosis. Tricuspid Valve The tricuspid valve is normal in structure. Mild tricuspid regurgitation. RVSP is 29 mmHg Pulmonic Valve Pulmonic valve is not well visualized. Great Vessels The aortic root is normal in size. The IVC is normal in size and collapses >50% with inspiration. Pericardium There is no pericardial effusion. Other Information Quality : Adequate Conclusion The left atrium is mildly dilated, 41 mL/m. The right atrium is dilated. Mild concentric left ventricular hypertrophy. No regional wall motion abnormalities noted. Left ventricular systolic function is normal estimated LVEF is 55 to 60%. Stage I diastolic dysfunction. Mild aortic regurgitation. Trace mitral regurgitation. Mild tricuspid regurgitation. PASP is 32 mmHg There is no pericardial effusion.
[2024-05-19] VITALS (8 sets, daily range): BP systolic 94–138; BP diastolic 63–74; PULSE 48–73; RESP 17–20; TEMP 97.5–98.5; O2SAT 96–98
[2024-05-19 05:25] LABS: HEMATOCRIT 34.6 % (36-48); MEAN CORPUSCULAR HEMOGLOBIN 30.3 pg (27.0-33.0); MEAN CORPUSCULAR HGB CONC 33.2 g/dL (32.0-36.0); MEAN CORPUSCULAR VOLUME 91.3 fL (79-99); RED BLOOD CELL COUNT(AUTO) 3.79 MIL/uL (4.00-5.50); RED CELL DISTRIBUTION WIDTH 12.9 % (11.0-15.5); WHITE BLOOD COUNT (AUTO) 9.7 K/uL (4.8-10.8)
[2024-05-19 05:37] LABS: CREATININE 0.7 mg/dL (0.5-1.0); POTASSIUM 3.7 mmol/L (3.5-5.1)
[2024-05-19] MEDS: PoTASSium chloRIDE 20MEQ ER 20 MEQ ERTAB PO PRN (06:41)
--- NOTE | 2024-05-19 09:39 | EKG ---
[facility] Test Date: 2024-05-19 Test Time: 09:22:50 Pat Name: LISBETH CROW Department: [facility] Room: 306 1 Gender: F Medical Insurance Claims Specialist: [id number] : 1945 Requested By: RENETTA CABRERA Order Number: [id number] Reading MD: González Davey Measurements Intervals [place] Rate: 69 P: -4 VT: 136 QRS: 13 QRSD: 76 T: -2 QT: 388 QTc: 415 Interpretive Statements Normal sinus rhythm Compared to ECG 05/18/2024 15:07:56 No significant changes Electronically Signed On 05-19-2024 20:02:31 PRECINCT POLICE CAPTAIN by González Davey Please click the below link to view image of tracing.
--- NOTE | 2024-05-19 11:32 | PN ---
[facility] PROGRESS NOTE Date of Service: May 19, 2024 Time of Service: 11:26 SUBJECTIVE: [78-year-old female admitted pain rule out ACS. Troponin levels were unremarkable. 2D echo did show right atrium dilatation with EF of 55-60% with stage I diastolic dysfunction. In the ED, patient will also was noted with atrial fibrillation but controlled heart rate. Today patient was evaluated in the room, she denies any chest pain at this time. We are awaiting for further recommendation from outbound sales consultant due to a 2D echo report. ] REVIEW OF SYSTEMS CONSTITUTIONAL: Denies fevers, chills, or night sweats. No unintentional weight loss reported. NEUROLOGICAL: Denies headache, amaurosis fugax, motor weakness, sensory deficit, vertigo/spinning sensation, gait abnormalities, or tremors. ENT: No hearing loss, otalgia, otorrhea, rhinitis, rhinorrhea, hoarseness, or sore throat. CARDIOVASCULAR: Denies any exertional angina, dyspnea on exertion, orthopnea, paroxysmal nocturnal dyspnea, palpitations, life-threatening arrhythmias, hakeem ication. PULMONARY: Denies any shortness of breath, cough, phlegm/sputum, hemoptysis, pleuritic chest pain. SLEEP: Denies morning headaches, daytime somnolence or napping. Denies difficulty falling asleep, staying asleep, waking from sleep. Denies knowledge of snoring. GASTROINTESTINAL: Denies any type of dysphagia to either liquids or solids. Denies nausea, vomiting, pyrosis, early satiety, abdominal pain, diarrhea, constipation, or changes in stool consistency or caliber. Denies coffee-ground emesis, hematemesis, hematochezia, or melanotic stools. GENITOURINARY: Denies frequency, urgency, nocturia, hematuria or incontinence (Storage/Irritative symptoms.) Low urinary stream, straining to void, urinary intermittency or hesitancy, splitting of the voiding stream, terminal dribbling. ENDOCRINOLOGIC: Denies polyuria, polydipsia, polyphagia or heat/cold intolerances. HEMATOLOGIC: Denies thrombophilia/previous clots, or coagulopathy/bleeding disorders. ONCOLOGIC: Denies personal history of malignancy. DERMATOLOGIC: Denies rashes or pruritus. PSYCHIATRIC: Denies any suicidal or homicidal ideation. Denies hallucinations. PHYSICAL EXAM GENERAL APPEARANCE: The patient is awake, alert, and oriented, in no acute cardiopulmonary distress. NEUROLOGICAL: Cranial nerves II-XII grossly intact. Motor is 5/5 in bilateral upper and lower extremities proximal to distal. No sensory deficits. HEENT: Face is symmetric. Pupils are equal and reactive. Extraocular movements are intact. NECK: Supple. No JVD. No thyromegaly. No submental, submandibular, pre- /postauricular, occipital or supraclavicular lymphadenopathy. CHEST: Normal chest expansion. No Telemetry. LUNGS: Absence of any rales, rhonchi or any wheezing. CARDIOVASCULAR: Regular. S1 and S2 normal. No appreciable rubs, murmurs or gallops. ABDOMEN: Soft, nontender, and nondistended. There is no rebound, voluntary guarding, or rigidity. : Deferred. No Parisi. EXTREMITIES: Non-edematous and not cyanotic. No clubbing. Good capillary refill. SKIN: No skin breakdown. Vital Signs (last 8hr) Date Time Temp Pulse Resp B/P (MAP) Pulse Ox O2 Delivery O2 Flow Rate FiO2 05/19/24 11:04 97.9 67 18 94/63 95 Nasal Cannula 2.0 05/19/24 07:54 98.4 48 18 116/74 96 Room Air 05/19/24 04:00 98.2 73 20 138/68 98 Room Air LABS: Laboratory: Test 05/19/24 05:05 05/18/24 20:49 05/18/24 08:53 05/18/24 08:19 Range/Units White Blood Count 9.7 4.8-10.8 K/uL Red Blood Count 3.79 L 4.00-5.50 MIL/uL Hemoglobin 11.5 L 12.0-16.0 g/dL Hematocrit 34.6 L 36-48 % Mean Corpuscular Volume 91.3 79-99 fL Mean Corpuscular Hemoglobin 30.3 27.0-33.0 pg Mean Corpuscular Hemoglobin Concent 33.2 32.0-36.0 g/dL Red Cell Distribution Width 12.9 11.0-15.5 % Platelet Count 201 130-400 K/uL Mean Platelet Volume 10.6 H 7.5-10.5 fL Nucleated Red Blood Cells 0.0 0.0-0.19 % Sodium Level 136 136-145 mmol/L Potassium Level 3.7 3.5-5.1 mmol/L Chloride Level 101 101-111 mmol/L Carbon Dioxide Level 28 21-32 mmol/L Blood Urea Nitrogen 13 7-18 mg/dL Creatinine 0.7 0.5-1.0 mg/dL Glomerular Filtration Rate Calc 90 >90 mL/min Random Glucose 111 H 70-105 mg/dL Total Calcium 8.6 8.5-10.1 mg/dL Triglycerides Level 47 30-200 mg/dL Cholesterol Level 142 <200 mg/dL LDL Cholesterol 88 0-99 mg/dL HDL Cholesterol 51 35-85 mg/dL Troponin I High Sensitivity 8 4-50 ng/L Troponin I < 0.05 0.00-0.05 ng/mL Immature Granulocyte % (Auto) 0.4 0-1 % Neutrophils (%) (Auto) 84.3 H 40.0-77.0 % Lymphocytes (%) (Auto) 7.6 L 21.0-51.0 % Monocytes (%) (Auto) 7.5 3.0-13.0 % Eosinophils (%) (Auto) 0.0 0.0-8.0 % Basophils (%) (Auto) 0.2 0.0-5.0 % Neutrophils # (Auto) 8.2 H 1.8-7.7 K/uL Lymphocytes # (Auto) 0.7 L 1.0-4.8 K/uL Monocytes # (Auto) 0.7 0.1-1.0 K/uL Eosinophils # (Auto) 0.00 0.00-0.70 K/uL Basophils # (Auto) 0.02 0.00-0.20 K/uL Absolute Immature Granulocyte (auto 0.04 0-1 K/uL White Cell Morphology Comment See comments Total Creatine Kinase 37 21-232 U/L B-Type Natriuretic Peptide 126 H 0-100 pg/mL Test 05/18/24 08:15 Range/Units Urine Color LIGHT-YELLOW YELLOW Urine Appearance CLEAR CLEAR Urine pH 7.0 5.0-8.0 Urine Specific [place] 1.007 1.001-1.031 Urine Protein NEGATIVE NEGATIVE mg/dL Urine Glucose (UA) NEGATIVE NEGATIVE mg/dL Urine Ketones NEGATIVE NEGATIVE mg/dL Urine Occult Blood NEGATIVE NEGATIVE Urine Nitrate NEGATIVE NEGATIVE Urine Bilirubin NEGATIVE NEGATIVE mg/dL Urine Urobilinogen 0.2 0.2-1.0 mg/dL Urine Leukocyte Esterase 25 H NEGATIVE Michelle/uL Urine RBC 0-1 0-1 /HPF Urine WBC 0-1 0-1 /HPF Urine Squamous Epithelial Cells RARE 0-2 /HPF Urine Bacteria None None Seen /HPF Current Medications Medications (Trade) Dose Ordered Sig/Madhav Route PRN Reason Start Time Stop Time Status Last Admin Dose Admin Ceftriaxone Sodium (ROCEphine 1G INJ) 1 gm Q24H IVPB 05/18/24 14:00 05/28/24 13:59 05/18/24 14:32 1 GM Enoxaparin Sodium (Lovenox) 30 mg DAILY SQ 05/19/24 09:00 06/18/24 08:59 Magnesium Sulfate 50 ml @ 0 mls/hr PROTOCOL PRN IV MAGNESIUM PROTOCOL 05/18/24 13:30 06/17/24 13:29 Metoprolol Tartrate (loprESSOR) 12.5 mg BID PO 05/18/24 21:00 06/17/24 20:59 05/18/24 21:06 12.5 MG Morphine Sulfate (morPHINE 2MG SYG) 2 mg Q4H PRN IVP SEVERE PAIN (7-10) 05/18/24 13:30 05/25/24 13:29 Potassium Chloride 100 ml @ 100 mls/hr AD PRN IV POTASSIUM PROTOCOL 05/18/24 13:30 06/17/24 13:29 Potassium Chloride (K-Dur/Klor-Con 20meq) 20 meq AD PRN PO POTASSIUM PROTOCOL 05/18/24 13:30 06/17/24 13:29 05/19/24 06:41 20 MEQ Potassium Chloride (KCl 10% Elixir 20meq/15ml) 20 meq AD PRN PO POTASSIUM PROTOCOL 05/18/24 13:30 06/17/24 13:29 DIAGNOSTICS / RADIOLOGY: [ ] ASSESSMENT: [Chest pain r/o ACS, POA Prominent right hilum on chest x-ray by mildly prominent but otherwise normal central pulmonary arteries by CT chest, POA Hyponatremia, POA Hyperglycemia, POA -improved Elevated BNP, POA Urinary tract infection, POA] PLAN: [Place in observation on telemetry floor to rule out acute coronary syndrome. Serial troponins were unremarkable. The 2D echo showed right atrium dilatation, we are consulting Cardiology for further recommendations. Of note, patient's daughter inform Dr. Vigil that in the past, outbound sales consultant have recommended a pacemaker. Continue antiplatelet agents, beta kierra, nitrates, low molecular weight heparin, morphine, oxygen. Continue with IV antibiotics for urinary tract infection with Rocephin1 g Q24 hours Add when necessary meds for nausea, vomiting, pain, constipation, Continue Lovenox and Protonix for DVT and GI prophylaxis. Rehab: PT/OT/ST GI: PPI DVT: SCD's Code Status: Full Resuscitation Disposition: TBD Prognosis: Guarded NEURO: Minimize central acting medications as possible. Fall Precautions. Well lighted room through the day and minimize interruptions through the night to prevent acute delirium. PULMONARY: Supplemental 02 as needed BiPAP as necessary, for respiratory distress Titrate Fio2 to keep Spo2 > or = 90% DuoNebs and CPT as needed IS hourly while awake for pulmonary hygiene Out of bed to chair as tolerated VAP Bundle Maintain aspiration precautions at all times CARDIOVASCULAR: Follow hemodynamics. Vital signs per facility protocol GI & NUTRITION: Continue nutritional support Aspirations precautions Prokinetic agents and laxatives as needed KIDNEYS & ELECTROLYTES: Strict monitoring of intake and output Daily weights Avoid nephrotoxic agents Monitor electrolytes and replace as needed Goal urine output of 30mL/hr or 0.5mL/kg/hr Medications to be dosed according to renal function. Avoid contrast if possible ENDOCRINE: Maintain blood glucose between 100-180 at all times. Insulin sliding scale for blood glucose management Hypoglycemia and hyperglycemia protocol in place INFECTIOUS DISEASE: Trend temperature, WBC and procalcitonin level Follow cultures, deescalate antibiotics as soon as possible. Panculture if new onset fever HEMATOLOGY & COAGULATION: Monitor H&H. Keep Hgb > 7 Transfuse 1 unit of PRBC for Hgb < 7 Transfuse 1 pack of platelets of platelets < 20, 000 Watch for any signs and symptoms of bleeding SKIN: Pressure ulcer prevention per facility protocol Specialty mattress as needed Case discussed with Dr. Vigil, above plan was formulated ATTESTATION BY PHYSICIAN I have seen and examined the patient. I reviewed the documentation, medical decision making, and treatment plan as noted by the mid-level provider above. I agree with the findings and plan of care. WYATT VIGIL MD, [facility] May 19, 2024 11:32
--- NOTE | 2024-05-19 13:41 | CONS ---
[facility] CARDIOLOGY CONSULTATION REPORT Cardiology consultation note dictated for Naomi Davey MD Date Patient Seen: May 19, 2024 Requesting Physician: Miguel Hamilton MD Reason for Consultation: Chest pain History of Present Illness: This is a 78-year-old female past medical history of hypertension and CVA x2 who presented to the ED with complaints of intermittent chest pain for 3 days. Cardiology has been consulted for chest pain. The patient is a poor historian, but was able to answer interview questions. Three days ago, the patient began to have intermittent episodes of left-sided chest discomfort described as a sharp quality that radiated to her interscapular area with a moderate intensity. The chest discomfort usually lasted less than five minutes until yesterday, when it lasted 1.5 hours and was only relieved once she received IV Morphine. She denies accompanying symptoms or aggravating factors. Troponin of 11 and 8. EKG on admission demonstrated normal sinus rhythm with a heart rate of 60 bpm. She has since experienced four more intermittent episodes of chest discomfort that last less than 5 minutes. Of note, the patient's brother 3 days ago. The daughter also added, that last night, she witnessed her mother groan in pain and clutch her left chest while asleep. She tried to wake her mother but she was not responding and began to flail her arms and shake. When the shaking subsided, the patient awoke and was confused. She asked her assistance to go to the bathroom and the patient had urinated herself. Past Medical History: As per HPI and summarized below Past Surgical History: Hysterectomy Hemorrhoidectomy Family History: Noncontributory Social History: The patient lives alone. Habits: The patient denies alcohol, tobacco, drug use. Home Meds: Amlodipine 10 mg daily Gabapentin 300 mg b.i.d. Telmisartan/hydrochlorothiazide 80-12.5 mg daily Current Meds: Current Medications Medications Dose Ordered Sig/Madhav Start Time Stop Time Status Last Admin Metoprolol Tartrate 12.5 mg BID 05/18/24 21:00 06/17/24 20:59 05/18/24 21:06 Morphine Sulfate 2 mg Q4H PRN 05/18/24 13:30 05/25/24 13:29 Potassium Chloride 100 ml @ 100 mls/hr AD PRN 05/18/24 13:30 06/17/24 13:29 Potassium Chloride 20 meq AD PRN 05/18/24 13:30 06/17/24 13:29 Potassium Chloride 20 meq AD PRN 05/18/24 13:30 06/17/24 13:29 05/19/24 06:41 Magnesium Sulfate 50 ml @ 0 mls/hr PROTOCOL PRN 05/18/24 13:30 06/17/24 13:29 Enoxaparin Sodium 30 mg DAILY 05/19/24 09:00 06/18/24 08:59 Ceftriaxone Sodium 1 gm Q24H 05/18/24 14:00 05/28/24 13:59 05/18/24 14:32 Review of Systems: CONST: No fever, fatigue, or weight changes. EYES: No recent vision problems. ENT: No congestion, ear pain, or sore throat. C/V: No chest pain, palpitations, or edema. RESP: No cough, congestion, wheezing or shortness of breath. GI: No abdominal pain, nausea, vomiting, constipation, or diarrhea. : No incontinence or dysuria. SKIN: No rash. NEURO: No headache, focal numbness or weakness, dizziness, or seizures. PSYCH: No depression or anxiety. HEME: No abnormal bruising or bleeding. LYMPH: No swollen glands. Physical Examination: GENERAL: No acute distress. Emotional, easily cries. HEAD: Normal with no signs of head trauma. EYES: PERRLA, EOMI, conjunctiva and sclera normal. ENT: Hearing grossly intact, normal oropharynx. NECK: Supple without JVD. There is no tenderness, lymphadenopathy, or masses. No thyromegaly. Normal carotid upstrokes without bruits. LUNGS: Clear breath sounds bilaterally. No wheezes, or rhonchi. HEART: Normal rate and rhythm. Normal S1 and S2 without murmurs, gallop or rub. VASC: Peripheral pulses +2 bilaterally. ABD: Bowel sounds normal, soft, nontender, no masses, no organomegaly. No audible bruits. : Not examined LYMPH: No lymphadenopathy noted. EXT: No clubbing, cyanosis or edema. SKIN: No rashes or lesions noted. NEURO: Awake, alert, and oriented x3. No focal sensory or strength deficits noted. Poor memory. Vital Signs (last 8hr) Date Time Temp Pulse Resp B/P (MAP) Pulse Ox O2 Delivery O2 Flow Rate FiO2 05/19/24 11:04 97.9 67 18 94/63 95 Nasal Cannula 2.0 05/19/24 07:54 98.4 48 18 116/74 96 Room Air Laboratory: Hematology Labs: Test 05/19/24 05:05 05/18/24 08:19 Range/Units White Blood Count 9.7 4.8-10.8 K/uL Red Blood Count 3.79 L 4.00-5.50 MIL/uL Hemoglobin 11.5 L 12.0-16.0 g/dL Hematocrit 34.6 L 36-48 % Mean Corpuscular Volume 91.3 79-99 fL Mean Corpuscular Hemoglobin 30.3 27.0-33.0 pg Mean Corpuscular Hemoglobin Concent 33.2 32.0-36.0 g/dL Red Cell Distribution Width 12.9 11.0-15.5 % Platelet Count 201 130-400 K/uL Mean Platelet Volume 10.6 H 7.5-10.5 fL Nucleated Red Blood Cells 0.0 0.0-0.19 % Immature Granulocyte % (Auto) 0.4 0-1 % Neutrophils (%) (Auto) 84.3 H 40.0-77.0 % Lymphocytes (%) (Auto) 7.6 L 21.0-51.0 % Monocytes (%) (Auto) 7.5 3.0-13.0 % Eosinophils (%) (Auto) 0.0 0.0-8.0 % Basophils (%) (Auto) 0.2 0.0-5.0 % Neutrophils # (Auto) 8.2 H 1.8-7.7 K/uL Lymphocytes # (Auto) 0.7 L 1.0-4.8 K/uL Monocytes # (Auto) 0.7 0.1-1.0 K/uL Eosinophils # (Auto) 0.00 0.00-0.70 K/uL Basophils # (Auto) 0.02 0.00-0.20 K/uL Absolute Immature Granulocyte (auto 0.04 0-1 K/uL White Cell Morphology Comment See comments Chemistry Labs: Test 05/19/24 05:05 05/18/24 20:49 05/18/24 08:53 05/18/24 08:19 Range/Units Sodium Level 136 136-145 mmol/L Potassium Level 3.7 3.5-5.1 mmol/L Chloride Level 101 101-111 mmol/L Carbon Dioxide Level 28 21-32 mmol/L Blood Urea Nitrogen 13 7-18 mg/dL Creatinine 0.7 0.5-1.0 mg/dL Glomerular Filtration Rate Calc 90 >90 mL/min Random Glucose 111 H 70-105 mg/dL Hemoglobin A1c 6.0 4.0-6.0 % Estimated Average Glucose (eAG) 126 70-126 mg/dL Total Calcium 8.6 8.5-10.1 mg/dL Triglycerides Level 47 30-200 mg/dL Cholesterol Level 142 <200 mg/dL LDL Cholesterol 88 0-99 mg/dL HDL Cholesterol 51 35-85 mg/dL Troponin I High Sensitivity 8 4-50 ng/L Troponin I < 0.05 0.00-0.05 ng/mL Total Creatine Kinase 37 21-232 U/L B-Type Natriuretic Peptide 126 H 0-100 pg/mL Diagnostics / Radiology: Echocardiogram on 05/18/2024 Conclusion The left atrium is mildly dilated, 41 mL/m. The right atrium is dilated. Mild concentric left ventricular hypertrophy. No regional wall motion abnormalities noted. Left ventricular systolic function is normal estimated LVEF is 55 to 60%. Stage I diastolic dysfunction. Mild aortic regurgitation. Trace mitral regurgitation. Mild tricuspid regurgitation. PASP is 32 mmHg There is no pericardial effusion. Impression and Plan: Chest pain 2D Echo on 05/18/2024 with an LVEF of 55-60%, Stage I diastolic dysfunction, no regional wall motion abnormalities, biatrial dilatation, PASP 32mmHg HTN CVA x2 Seizure like activity witness by daughter the night of 05/18/2024 Chest pain Troponin of 11 and 8 EKG on admission demonstrated normal sinus rhythm with a heart rate of 60 bpm Of note, the patient's brother 3 days ago when symptoms began -Start Aspirin 81mg daily, Atorvastatin 10mg nightly, and Metoprolol 12.5mg BID -Lexiscan stress test in AM to assess for ischemia Case was discussed extensively with Dr. Davey and he is in agreement that considering patient's significant cardiovascular comorbidities as well as her presentation that a further noninvasive ischemic evaluation should be performed and she will be scheduled for Lexiscan Cardiolite as soon as possible. We will continue to follow. RETA MCGRATH May 19, 2024 13:41 NAOMI DAVEY MD May 19, 2024 20:08
--- NOTE | 2024-05-19 15:25 | NUR ---
[facility] Nurse assessment Nurse met with patient and daughter. Pt states lives alone and feels safe in her home environment. Pt is independent with her ADL'S, daughter (Jerri Solorio) is her transportation. Pt has no HHS at this time. Pt PCP is [facility]. [facility]-home Addendum: 05/19/24 at 1533 by MARIEL LOOMIS RN CM Amended: Links added.
[2024-05-19] MEDS: ENOXAPARIN SODIUM 30 MG/0.3 ML SQ SCH (17:42)
[2024-05-19] MEDS: atorVAStatin 10 MG TABLET PO SCH (20:31)
[2024-05-19] MEDS: metoPROLOL tartRATE 25 MG TAB PO SCH (20:32)
[2024-05-20] VITALS: BP 126/70; PULSE 57; RESP 20; TEMP 97.6
[2024-05-20 04:00] VITALS: BP 127/72; PULSE 62; RESP 20; TEMP 98.1
[2024-05-20 05:32] LABS: HEMATOCRIT 33.8 % (36-48); MEAN CORPUSCULAR HEMOGLOBIN 30.4 pg (27.0-33.0); MEAN CORPUSCULAR HGB CONC 33.1 g/dL (32.0-36.0); MEAN CORPUSCULAR VOLUME 91.6 fL (79-99); RED BLOOD CELL COUNT(AUTO) 3.69 MIL/uL (4.00-5.50); WHITE BLOOD COUNT (AUTO) 5.1 K/uL (4.8-10.8)
[2024-05-20 05:40] LABS: CREATININE 0.7 mg/dL (0.5-1.0); MAGNESIUM 1.9 mg/dL (1.80-2.40); POTASSIUM 4.1 mmol/L (3.5-5.1)
[2024-05-20 08:00] VITALS: BP 146/79; PULSE 55; RESP 16; TEMP 97.9; O2SAT 96
[2024-05-20] MEDS ORDERED: REGADENOSON 0.4 MG/5 ML PF SYG IVP ONE (08:54)
[2024-05-20] MEDS: ASPIRIN 81 MG EC TAB PO SCH (09:00)
--- NOTE | 2024-05-20 09:53 | PN ---
[facility] Cardiology Progress Note PROBLEM LIST: Unstable angina, pending Lexiscan 2D Echo on 05/18/2024 with an LVEF of 55-60%, Stage I diastolic dysfunction, no regional wall motion abnormalities, biatrial dilatation, PASP 32mmHg HTN CVA x2 Seizure like activity witness by daughter the night of 05/18/2024 INTERVAL HISTORY: [The patient is completing her Lexiscan this morning. Vitals have been stable. No reports of chest discomfort by the nursing staff. If her Lexiscan does not show any significant ischemia, she can be discharged with outpatient follow-up with us. She is on telmisartan 80/12.5 daily and other meds at discharge.] PHYSICAL EXAMINATION: Vital Signs (Last 48hrs) Date Time Temp Pulse Resp B/P (MAP) Pulse Ox O2 Delivery O2 Flow Rate FiO2 05/20/24 08:00 97.9 55 16 146/79 96 Room Air 05/20/24 04:00 98.1 62 20 127/72 96 Room Air 05/20/24 00:00 97.5 57 20 126/70 95 Room Air 05/19/24 20:32 98 Nasal Cannula* 2 05/19/24 20:00 97.5 57 20 127/74 98 Room Air 05/19/24 15:05 97.9 53 17 124/71 96 Room Air 05/19/24 11:04 97.9 67 18 94/63 95 Nasal Cannula 2.0 05/19/24 08:00 96 Room Air* 0 05/19/24 07:54 98.4 48 18 116/74 96 Room Air 05/19/24 04:00 98.2 73 20 138/68 98 Room Air 05/19/24 00:00 98.4 71 20 123/69 94 Room Air 05/18/24 21:20 98 Room Air* 0 05/18/24 21:17 98.2 75 20 164/99 96 Room Air 05/18/24 21:09 98.6 73 18 160/90 98 Room Air* 0 05/18/24 19:49 98.2 68 16 139/76 98 Room Air* 0 05/18/24 19:03 98.2 64 17 139/75 98 Room Air* 0 05/18/24 18:00 98.2 77 18 135/71 93 Room Air* 0 05/18/24 17:00 98.1 70 18 148/78 93 Room Air* 0 05/18/24 16:00 70 18 138/78 98 Room Air* 0 05/18/24 15:15 65 16 137/68 98 Room Air* 0 05/18/24 14:15 66 15 121/55 98 Room Air* 0 05/18/24 13:15 68 15 140/68 98 Room Air* 0 05/18/24 12:15 68 15 140/68 98 Room Air* 0 05/18/24 11:10 64 15 113/62 95 Room Air* 0 05/18/24 10:45 67 15 118/63 95 Room Air* 0 21 LABORATORY DATA: [ Laboratory Tests Test 05/20/24 05:09 White Blood Count 5.1 K/uL (4.8-10.8) Red Blood Count 3.69 MIL/uL (4.00-5.50) L Hemoglobin 11.2 g/dL (12.0-16.0) L Hematocrit 33.8 % (36-48) L Mean Corpuscular Volume 91.6 fL (79-99) Mean Corpuscular Hemoglobin 30.4 pg (27.0-33.0) Mean Corpuscular Hemoglobin Concent 33.1 g/dL (32.0-36.0) Red Cell Distribution Width 13.0 % (11.0-15.5) Platelet Count 201 K/uL (130-400) Mean Platelet Volume 10.7 fL (7.5-10.5) H Nucleated Red Blood Cells 0.0 % (0.0-0.19) Sodium Level 143 mmol/L (136-145) Potassium Level 4.1 mmol/L (3.5-5.1) Chloride Level 107 mmol/L (101-111) Carbon Dioxide Level 29 mmol/L (21-32) Blood Urea Nitrogen 13 mg/dL (7-18) Creatinine 0.7 mg/dL (0.5-1.0) Glomerular Filtration Rate Calc 90 mL/min (>90) Random Glucose 96 mg/dL (70-105) Total Calcium 8.6 mg/dL (8.5-10.1) Magnesium Level 1.90 mg/dL (1.80-2.40) ] JOSÉ ANTONIO BARNEY PAC May 20, 2024 09:53
[2024-05-20] MEDS ORDERED: AEC81 PO (11:08)
[2024-05-20] MEDS ORDERED: ATOR10 PO (11:08)
[2024-05-20] MEDS ORDERED: METO25 PO (11:08)
--- NOTE | 2024-05-20 11:15 | DS ---
Discharge Summary Hospital Course Summary: 71-year-old male with past medical history of coronary artery disease, hypertension, hyperlipidemia who presented to the emergency department who complained with chest pain that started three days ago intermittently. Patient stated that he has had heart attack in the past and the pain is not same. He described it as far pain to the left chest area, comes and goes and lasts for about one-to-one and half hours study. Patient admitted that he has not had taken any nitro as he gets confused with the expiration date. Since pain went on for three days, patient decided to come to the emergency department for further evaluation. In the ED, his initial troponins I showed elevation at 96, BNP 131, urinalysis was also remarkable and patient did complain of dysuria. He has history of TURP and recurrent UTIs with history of MDRO. Patient is afebrile and no leukocytosis. But urinalysis was remarkable for UTI. Patient was admitted for further cardiac evaluation. She was evaluated by [facility] and recommended to proceed with serial troponins. Which came back all unremarkable. Patient was recommended for Lexiscan stress test which was done today, 2nd part is pending. As per on air director this morning, if patient's stress test is unremarkable, patient can be discharged home and continue with her home medicat ion telmisartan 80/12.5 daily. We discussed this with the patient and daughter at bedside and they verbalized understanding. We will discharge patient accordingly once final results of the stress test reviewed. Patient is hemodynamically stable. She will follow up with her PCP in 2-3 days. She will follow up with on air director in one week. Debarker Operator(s): [facility], Dr. Davey Procedure(s): 05/20/2024, Lexiscan stress test Assessment/Plan: Discharge Diagnoses: [Chest pain r/o ACS, POA Prominent right hilum on chest x-ray by mildly prominent but otherwise normal central pulmonary arteries by CT chest, POA Hyponatremia, POA Hyperglycemia, POA -improved Elevated BNP, POA Urinary tract infection, POA] Admitting Diagnoses: [Chest pain r/o ACS, POA Prominent right hilum on chest x-ray by mildly prominent but otherwise normal central pulmonary arteries by CT chest, POA Hyponatremia, POA Hyperglycemia, POA -improved Elevated BNP, POA Urinary tract infection, POA] PLAN: [Place in observation on telemetry floor to rule out acute coronary syndrome. Serial troponins were unremarkable. The 2D echo showed right atrium dilatation, we are consulting Cardiology for further recommendations. Of note, patient's daughter inform Dr. Hamilton that in the past, on air director have recommended a pacemaker. Continue antiplatelet agents, beta kierra, nitrates, low molecular weight heparin, morphine, oxygen. Continue with IV antibiotics for urinary tract infection with Rocephin1 g Q24 hours Add when necessary meds for nausea, vomiting, pain, constipation, Continue Lovenox and Protonix for DVT and GI prophylaxis. Rehab: PT/OT/ST GI: PPI DVT: SCD's Code Status: Full Resuscitation Disposition: TBD Prognosis: Guarded NEURO: Minimize central acting medications as possible. Fall Precautions. Well lighted room through the day and minimize interruptions through the night to prevent acute delirium. PULMONARY: Supplemental 02 as needed BiPAP as necessary, for respiratory distress Titrate Fio2 to keep Spo2 > or = 90% DuoNebs and CPT as needed IS hourly while awake for pulmonary hygiene Out of bed to chair as tolerated VAP Bundle Maintain aspiration precautions at all times CARDIOVASCULAR: Follow hemodynamics. Vital signs per facility protocol GI & NUTRITION: Continue nutritional support Aspirations precautions Prokinetic agents and laxatives as needed KIDNEYS & ELECTROLYTES: Strict monitoring of intake and output Daily weights Avoid nephrotoxic agents Monitor electrolytes and replace as needed Goal urine output of 30mL/hr or 0.5mL/kg/hr Medications to be dosed according to renal function. Avoid contrast if possible ENDOCRINE: Maintain blood glucose between 100-180 at all times. Insulin sliding scale for blood glucose management Hypoglycemia and hyperglycemia protocol in place INFECTIOUS DISEASE: Trend temperature, WBC and procalcitonin level Follow cultures, deescalate antibiotics as soon as possible. Panculture if new onset fever HEMATOLOGY & COAGULATION: Monitor H&H. Keep Hgb > 7 Transfuse 1 unit of PRBC for Hgb < 7 Transfuse 1 pack of platelets of platelets < 20, 000 Watch for any signs and symptoms of bleeding SKIN: Pressure ulcer prevention per facility protocol Specialty mattress as needed Case discussed with Dr. Hamilton, above plan was formulated Discharge Instructions: Condition upon discharge stable Discharge (disposition) home Follow-up with PCP in 2 to 3 days Consultants follow-up: Follow up with Dr. Davey in one week Home medications reviewed New medications: Na Went over adverse reaction and side effects of new medications Home Medications: Active Scripts Acetaminophen (Tylenol) 500 Mg Tab, 500 MG PO Q6HPRN PRN for PAIN LEVEL 1 TO 5 for 5 Days, #30 TAB Prov:HERLINDA PAGE MD 06/25/22 Reported Medications Gabapentin (Neurontin) 300 Mg Capsule, 1 CAP PO BID for 30 Days, #90 CAP 0 Refills 05/18/24 Telmisartan/Hydrochlorothiazid (Telmisartan-Hctz 80-12.5 mg Tb) 80 Mg-12.5 Mg Tablet, 1 TAB PO DAILY for 30 Days, #30 TAB 0 Refills 05/18/24 Amlodipine Besylate (Amlodipine Besylate) 10 Mg Tablet, 1 TAB PO DAILY for 30 Days, #30 TAB 0 Refills 05/18/24 New Medications: Aspirin (Aspirin 81 Mg Ectab) 81 Mg Ectab 81 MG PO DAILY, #30 TAB.EC 0 Refills Atorvastatin Calcium (Lipitor) 10 Mg Tab 10 MG PO HS, #30 TAB 0 Refills Metoprolol Tartrate (Lopressor) 25 Mg Tab 12.5 MG PO BID, #60 TAB Continued Medications: Acetaminophen (Tylenol) 500 Mg Tab 500 MG PO Q6HPRN PRN for PAIN LEVEL 1 TO 5 for 5 Days, #30 TAB Amlodipine Besylate (Amlodipine Besylate) 10 Mg Tablet 1 TAB PO DAILY for 30 Days, #30 TAB 0 Refills Gabapentin (Neurontin) 300 Mg Capsule 1 CAP PO BID for 30 Days, #90 CAP 0 Refills Telmisartan/Hydrochlorothiazid (Telmisartan-Hctz 80-12.5 mg Tb) 80 Mg-12.5 Mg Tablet 1 TAB PO DAILY for 30 Days, #30 TAB 0 Refills Time spent arranging discharge: 31-60 minutes ATTESTATION BY PHYSICIAN I have seen and examined the patient. I reviewed the documentation, medical decision making, and treatment plan as noted by the mid-level provider above. I agree with the findings and plan of care. WYATT HAMILTON MD, [facility] May 20, 2024 11:15
[2024-05-20 12:00] VITALS: BP 111/75; PULSE 66; RESP 18; TEMP 98
[2024-05-20 16:00] VITALS: BP 143/81; PULSE 66; RESP 18; TEMP 98
--- NOTE | 2024-05-20 19:36 | HMCSR ---
APPROVED REPORT Height: 5 ft 4in Weight: 144 lbs TEST INDICATIONS Chest Pain The imaging protocol used to acquire images was Rest Tc-99m/stress Tc-99m 1 day Consent: The procedure was explained and understood by the patient. Informerd consent was witnessed Compa Chiang RN First, low dose rest was performed then high dose stress. RESTING DATA: The resting ekg shows: NSR Rest SPECT myocardial perfusion imaging was performed in supine position minutes following the intra venous injection of 12 mCi of Tc-99 Sestamibi. Time of rest injection: 06:35: Date: 05/20/2024 PHARMACOLOGIC STRESS: Pharmacologic stress test was performed by injecting regadenoson 0.4 mg IV push followed by the intra venous injection of 29 mCi of Tc-99 Sestamibi. Time of stress injection: 09:11: Date: 05/20/2024 Heart Rate at time of stress injection: 56 bpm. The images were gated to evaluate regional wall motion and calculate left ventricular ejection fracti on. STRESS DETAILS Reason for Termination: Infusion complete Stress Symptoms: Headache, Chest discomfort Max HR Achieved: 83 bpm % of APMHR Achieved: 68 Max Blood Pressure: 158/71 mmHg Stress ECG: NSR Study quality was good. Lung uptake was Normal. Artifact: breast artifact LEFT VENTRICLE Size: The left ventricular size is normal. Systolic Function:The left ventricular systolic function is normal. Wall Motion: No regional wall motion abnormalities noted. The left ventricular ejection fraction was calculated to be 78%.TID = 1.00. LV PERFUSION Mid and apical septal fixed defect consistent with breast artifact. Conclusion The left ventricular ejection fraction was calculated to be 78%.TID = 1.00. Mid and apical septal fixed defect consistent with breast artifact. Low risk.
--- NOTE | 2024-05-20 19:46 | NUR ---
ANTONIO FOLLOW-UP SPOKE TO DR. GIBSON REGARDING ANTONIO REPORT. PER DR. GIBSON, THIS IS A LOW RISK STUDY.
[2024-05-20 20:00] VITALS: BP 138/75; PULSE 67; RESP 20; TEMP 97.9
--- NOTE | 2024-05-20 20:37 | NUR ---
Nursing Note Spoke with Dr. Rodriges and he stated the test was Normal
--- NOTE | 2024-05-20 21:40 | NUR ---
Nursing Note Pt was given discharge paper work by leisa MEDRANO and her iv was removed by leisa medrano. pt was taken down by wheelchair by digester operator at [id number]
== END 2024-05-20 21:20 | disposition still patient (30) ==
LOC: EDH 06:58 → EDHIP 12:03 → 3BH 21:03
PROVIDERS: ADMIT Internal Medicine; ATTEND Internal Medicine
DX: R07.89 Other chest pain (principal); R51.9 Headache, unspecified; R79.89 Other specified abnormal findings of blood chemistry; E11.65 Type 2 diabetes mellitus with hyperglycemia; E78.5 Hyperlipidemia, unspecified; E87.1 Hypo-osmolality and hyponatremia; I11.9 Hypertensive heart disease without heart failure; I25.10 Atherosclerotic heart disease of native coronary artery without angina pectoris; I25.2 Old myocardial infarction; I48.91 Unspecified atrial fibrillation; N39.0 Urinary tract infection, site not specified; Z86.73 Personal history of transient ischemic attack (TIA), and cerebral infarction without residual deficits; Z90.710 Acquired absence of both cervix and uterus; Z79.899 Other long term (current) drug therapy; Z98.890 Other specified postprocedural states
CPT/HCPCS: 96365; 96375; 99285; 82550; 84484 ×3; 80048 ×3; 83880; 85025; 81001; 36415 ×3; 71045; 70450; 71260; 93306; 93356; 93005 ×3; 96376; 96372; 83036; 80061; 85027 ×2; 96366; 83735; 93017; 78452; G0378 ×53; J0696 ×3; J2405; J2270; Q9967; J1650; J2785; A9500 ×2